=== PATIENT | female | born 1940 | race Caucasian/White ===

== ENCOUNTER 2017-02-17 09:04 | Outpatient (CLI) | payer MEDICARE, OTHER ==
[2012-09-18 08:50] VITALS: BMI 43.3
== END 2017-02-17 11:05 ==
LOC: D.MAMMO 09:04
DX: C50.911 Malignant neoplasm of unspecified site of right female breast (principal)

== ENCOUNTER → 2018-02-28 20:24 | Outpatient (CLI) | payer MEDICARE, OTHER ==
[2012-09-18 08:50] VITALS: BMI 43.3
== END | disposition home or self-care (01) ==
LOC: D.MAMMO 11:30
DX: Z08 Encounter for follow-up examination after completed treatment for malignant neoplasm (principal); Z85.3 Personal history of malignant neoplasm of breast

== ENCOUNTER 2019-03-16 08:00 | Outpatient (CLI) | payer MEDICARE, OTHER ==
[2012-09-18 08:50] VITALS: BMI 43.3
== END 2019-03-16 11:00 | disposition home or self-care (01) ==
LOC: D.MAMMO 08:00
PROVIDERS: ATTEND Family Medicine
DX: Z12.31 Encounter for screening mammogram for malignant neoplasm of breast (principal)